=== PATIENT | male | born 1960 | race Caucasian/White ===

== ENCOUNTER 2017-11-11 06:36 | Day surgery (SDC) | payer BC ==
[~2017-11-11 06:36] MED LIST: Lactated Ringers 1,000 ML IV SCH; Lidocaine 1%/Sod Bicarbonate in NS 8.4% 1 ML Syringe IDERM PRN; Sodium Chloride 0.9% 10 ML Syringe FLUSH PRN
[2017-11-11] MEDS ORDERED: Propofol 200 MG/20 ML SDV ONE ×2 (06:45→06:47)
[2017-11-11] MEDS ORDERED: Lidocaine 1% 2 ML ONE ×2 (06:45)
--- NOTE | 2017-11-11 07:08 | PCM.PREANE ---
Preanesthetic Assessment - Anesthesia/Transfusion/Family Hx Anesthesia History: Prior Anesthesia Without Reaction Family History of Anesthesia Reaction: No Transfusion History: No Prior Transfusion(s) Intubation History: Unknown - Review of Systems General: No Symptoms Pulmonary: No Symptoms Cardiovascular: No Symptoms Gastrointestinal: No Symptoms Neurological: No Symptoms Other: Reports: None - Physical Assessment NPO Status Date: 11/10/17 NPO Status Time: 17:00 Pulse: 66 O2 Sat by Pulse Oximetry: 97 Respiratory Rate: 16 Blood Pressure: 143/99 Temperature: 97.5 C ASA Class: 2 Mental Status: Alert & Oriented x3 Dentition: Reports: Normal Dentition Thyro-Mental Finger Breadths: 3 Mouth Opening Finger Breadths: 3 ROM/Head Extension: Full Lungs: Clear to Auscultation, Normal Respiratory Effort Cardiovascular: Regular Rate, Regular Rhythm - Allergies Allergies/Adverse Reactions: Allergies Allergy/AdvReac Type Severity Reaction Status Date / Time amoxicillin [From Augmentin] AdvReac thrush Verified 11/09/17 08:04 clavulanic acid AdvReac thrush Verified 11/09/17 08:04 [From Augmentin] - Acknowledgements Anesthesia Type Planned: MAC Pt an Appropriate Candidate for the Planned Anesthesia: Yes Alternatives and Risks of Anesthesia Discussed w Pt/Guardian: Yes Pt/Guardian Understands and Agrees with Anesthesia Plan: Yes PreAnesthesia Questionnaire HEENT History: Reports: Otitis Media Cardiovascular History: Reports: CAD, Cardiomyopathy, High Cholesterol, Hypertension (EKG 09-23-17 SR 64, ASHD), Other (See Below) Other Cardiovascular History: varicose veins, stents, chest pain Respiratory History: Reports: Asthma (Asthma as a child, no problems as an adult ), SOB (with exertion, states better since stents placed) Gastrointestinal History: Reports: Diverticulosis, GERD, Other (See Below) Other Gastrointestinal History: excessive flatus, dyspepsia, colostomy with take down Genitourinary History: Reports: None 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 Musculoskeletal History: Reports: Back Pain, Chronic, Other (See Below) Other Musculoskeletal History: lumbar strain, right foot pain, ganglion cyst Neurological History: Reports: None Psychiatric History: Reports: None Endocrine/Metabolic History: Reports: Diabetes, Type II (pt states does not check BS on a normal basis), Obesity/BMI 30+ Hematologic History: Reports: None Immunologic History: Reports: None Oncologic (Cancer) History: Reports: None Dermatologic History: Reports: Seborrheic Dermatitis, Other (See Below) Other Dermatologic History: warts - Past Surgical History Head Surgeries/Procedures: Reports: None HEENT Surgical History: Reports: None Cardiovascular Surgical History: Reports: Coronary Artery Stent Respiratory Surgical History: Reports: None GI Surgical History: Reports: Colon (colon resection), Colonoscopy, Colostomy Female Surgical History: Reports: None Male Surgical History: Reports: None Endocrine Surgical History: Reports: None Neurological Surgical History: Reports: None Musculoskeletal Surgical History: Reports: None Oncologic Surgical History: Reports: None Dermatological Surgical History: Reports: None - SUBSTANCE USE Smoking Status *Q: Former Smoker Recreational Drug Use History: No - HOME MEDS Home Medications: Home Meds Aspirin [Adult Aspirin] 81 mg PO DAILY 11/08/17 [History] Garlic 1,000 mg PO DAILY 11/08/17 [History] Losartan [Cozaar] 25 mg PO DAILY 11/08/17 [History] Multivitamin [Daily Marya] 1 tab PO DAILY 11/08/17 [History] [place]-3/DHA/Epa/Fish Oil [Fish Oil 1,000 mg Softgel] 1 gm PO DAILY 11/08/17 [ History] Ranitidine [Zantac] 150 mg PO DAILY 11/08/17 [History] Ubidecarenone [COQ-10] 30 mg PO DAILY 11/08/17 [History] atorvaSTATin [Lipitor] 10 mg PO DAILY 11/08/17 [History] buPROPion [Wellbutrin SR] 150 mg PO BID 11/08/17 [History] metFORMIN [Glucophage XR] 500 mg PO BID 11/08/17 [History] - CURRENT (IN HOUSE) MEDS Current Meds: Current Medications Lactated Ringer's (Ringers, Lactated) 1,000 mls @ 125 mls/hr IV ASDIRECTED TIM Stop: 11/11/17 23:00 Lidocaine/Sodium Bicarbonate (Buffered Lidocaine 1% In Ns 8.4%) 0.25 ml IDERM ONETIME PRN PRN Reason: Prior to IV Start Stop: 11/11/17 18:00 Sodium Chloride (Saline Flush) 10 ml FLUSH ASDIRECTED PRN PRN Reason: Keep Vein Open Stop: 11/11/17 18:00 Discontinued Medications Lidocaine HCl (Xylocaine-Mpf 1%) Confirm Administered Dose 2 mls @ as directed .ROUTE .STK-MED ONE Stop: 11/11/17 06:46 Lidocaine HCl (Xylocaine-Mpf 1%) Confirm Administered Dose 2 mls @ as directed .ROUTE .STK-MED ONE Stop: 11/11/17 06:46 Propofol (Diprivan 20 Ml) Confirm Administered Dose 200 mg .ROUTE .STK-MED ONE Stop: 11/11/17 06:46 Propofol (Diprivan 20 Ml) Confirm Administered Dose 200 mg .ROUTE .STK-MED ONE Stop: 11/11/17 06:48
--- NOTE | 2017-11-11 07:29 | PCM.HP ---
H&P History of Present Illness - General Date of Service: 11/11/17 Admit Problem/Dx: surveillance colonoscopy, reflux, heartburn, LUQ discomfort - History of Present Illness Initial Comments - Free Text/Narative: The patient is a 57-year-old malereferred by Dr. Clifton for surveillance colonoscopy, hx of colon polyps The patient presents today for surveillance colonoscopy and diagnostic EGD. He was last evaluated in the clinic on 09/23. He denies changes to medical history since that date. He did complete prep. Stools were clear. He did see cardiology and cardiac status was felt to be stable. The patient hasconstipation occasionally and uses a stools softener with relief. Using less stool softeners since last visit. NO: Diarrhea. NO: hematochezia/ melena/blood on tissue paper. Hx of hemorrhoids. Has 1-2BMs daily. Bowel movements are described as regular and easy to pass, occasionally hard to pass. No unintentional weight loss. No change in stool caliber. No abdominal pain, today. Occasionally will have some RLQ pain and has increased flatus. He does think this improves with bowel movements. Uses Gas X -less than at last visit. Anything can induce flatus, avoid cauliflower and broccoli. Denies history of ulcerative colitis or Crohn's disease. Reports family history of inflammatory bowel disease in nephew. NO:GI cancers.Last colonoscopy was 2000, tubular adenoma with low grade dysplasia was found, done in [place]. Has reflux, heartburn, not well controlled with Zantac. Reports he was started on Zantac by PCP and cardiology as was told his "medications can tear up his stomach." Rolaids do not help. He reports reflux/heartburnnot daily, but a frequent occurrence. He reports sometimes will have LUQ/epigastric pain/chest painwith increased gas. Pain occurs several times per week. Pain does not radiate. He does not have diaphoresis with this. He reports this has been ongoing for 6-8 months. Again he did see his psychological operations on 10/04, I did update his psychological operations on symptoms and patient was cleared for procedure. Pain is not exertional, happens more at rest.He reports when he had SOBprior to stenting -He does not have this currently. He has not identified a trigger. NO: nausea, vomiting, or dysphagia. Last EGD was never. No right upper abdominal pain. NO pain/diarrhea with fatty meals. - Related Data Allergies/Adverse Reactions: Allergies Allergy/AdvReac Type Severity Reaction Status Date / Time amoxicillin [From Augmentin] AdvReac thrush Verified 11/09/17 08:04 clavulanic acid AdvReac thrush Verified 11/09/17 08:04 [From Augmentin] Home Medications: Home Meds Aspirin [Adult Aspirin] 81 mg PO DAILY 11/08/17 [History] Garlic 1,000 mg PO DAILY 11/08/17 [History] Losartan [Cozaar] 25 mg PO DAILY 11/08/17 [History] Multivitamin [Daily Marya] 1 tab PO DAILY 11/08/17 [History] [place]-3/DHA/Epa/Fish Oil [Fish Oil 1,000 mg Softgel] 1 gm PO DAILY 11/08/17 [ History] Ranitidine [Zantac] 150 mg PO DAILY 11/08/17 [History] Ubidecarenone [COQ-10] 30 mg PO DAILY 11/08/17 [History] atorvaSTATin [Lipitor] 10 mg PO DAILY 11/08/17 [History] buPROPion [Wellbutrin SR] 150 mg PO BID 11/08/17 [History] metFORMIN [Glucophage XR] 500 mg PO BID 11/08/17 [History] Past Medical History HEENT History: Reports: Otitis Media Cardiovascular History: Reports: CAD, Cardiomyopathy, High Cholesterol, Hypertension (EKG 09-23-17 SR 64, ASHD), Other (See Below) Other Cardiovascular History: varicose veins, stents, chest pain Respiratory History: Reports: Asthma (Asthma as a child, no problems as an adult ), SOB (with exertion, states better since stents placed) Gastrointestinal History: Reports: Diverticulosis, GERD, Other (See Below) Other Gastrointestinal History: excessive flatus, dyspepsia, colostomy with take down Genitourinary History: Reports: None 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 Musculoskeletal History: Reports: Back Pain, Chronic, Other (See Below) Other Musculoskeletal History: lumbar strain, right foot pain, ganglion cyst Neurological History: Reports: None Psychiatric History: Reports: None Endocrine/Metabolic History: Reports: Diabetes, Type II (pt states does not check BS on a normal basis), Obesity/BMI 30+ Hematologic History: Reports: None Immunologic History: Reports: None Oncologic (Cancer) History: Reports: None Dermatologic History: Reports: Seborrheic Dermatitis, Other (See Below) Other Dermatologic History: warts - Past Surgical History Head Surgeries/Procedures: Reports: None HEENT Surgical History: Reports: None Cardiovascular Surgical History: Reports: Coronary Artery Stent Respiratory Surgical History: Reports: None GI Surgical History: Reports: Colon (colon resection), Colonoscopy, Colostomy Female Surgical History: Reports: None Male Surgical History: Reports: None Endocrine Surgical History: Reports: None Neurological Surgical History: Reports: None Musculoskeletal Surgical History: Reports: None Oncologic Surgical History: Reports: None Dermatological Surgical History: Reports: None Social & Family History - Tobacco Use Smoking Status *Q: Former Smoker Used Tobacco, but Quit: Yes Month/Year Tobacco Last Used: 03/2017 - Caffeine Use Caffeine Use: Reports: Coffee - Recreational Drug Use Recreational Drug Use: No Drug Use in Last 12 Months: No H&P Review of Systems - Review of Systems: Review Of Systems: See Below Free Text/Narrative: Denies any exertional chest pain or shortness of breath. He does not get regular exercise. 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 No history of any easy bleeding or bruising. No personal or familial history of clotting or bleeding disorders. No history of anesthetic complications. No history of familial anesthetic complications. Denies presence of chest pain. He has history of stenting 2013 and 2016 had shortness of breath prior to stenting. NO: palpitations. He reports at times is more aware of heart beat. Denies symptoms with this. NO: lower extremity edema, dyspnea at rest, orthopnea, claudication. He has had some left leg pain for several months, primarily behind the knee. He has some leg cramping at rest with this. Stretching does help. Pain seems to come and go. His fiance is concerned he has a blood clot. He reports he was told pain was due to varicose veins by PCP. I did offer venous duplex/reflux study at last visit and he declined. He does wear knee high compression stockings. He did use a knee brace and this did help with symptoms. NO: wheezing, obstructive sleep apnea. Reports Snoring. NO: witnessed apnea. NO: chronic cough, upper respiratory symptoms in the last two weeks. No history of blood thinner use, uses aspirin, stopped Plavix last year. No history of anemia. NO: joint replacement and heart valve replacement. No history of seizure or stroke. No fever, chills, or nightsweats. Follows with Cardiology. NO: pulmonology evaluation. EK EKG Severity - NORMAL ECG - EKG Impression Sinus rhythm Echo: 2013 Conclusion: 1. Left ventricular ejection fraction is 55 to 60%. 2. Mildly dilated left atrium. 3. Mildly dilated right atrium. 4. There is no evidence of pericardial effusion Cardiac cath 2016: IMPRESSION: Atherosclerotic heart disease manifested by 2-vessel disease with progressive, life-style limiting angina, Eddy class III due to progression of disease, proximal left anterior descending coronary artery, status post culprit lesion percutaneous coronary intervention as noted above; widely patent stent right coronary artery. All other systems reviewed and were negative except as per history of present illness. Exam - Exam Exam: See Below - Vital Signs Vital Signs: Last Vital Signs Temp 207.5 F H 11/11/17 07:15 Pulse 66 11/11/17 07:15 Resp 16 11/11/17 07:15 BP 143/99 H 11/11/17 07:15 Pulse Ox 97 11/11/17 07:15 Weight: 100.244 kg - Exam General: Alert, Oriented HEENT: Conjunctiva Clear Lungs: Clear to Auscultation, Normal Respiratory Effort Cardiovascular: Regular Rate, Regular Rhythm, Normal S1, Normal S2 GI/Abdominal Exam: Normal Bowel Sounds, Soft, Non-Tender Back Exam: Normal Inspection Extremities: Normal Inspection, No Pedal Edema, Normal Capillary Refill, Other ( varicosity slightly tender to left popliteal fossa, no warmth, no firmness, no erythema, no edema) Peripheral Pulses: 2+: Radial (L), Radial (R) Skin: Warm, Dry, Intact Neuro Extensive - Mental Status: Alert, Oriented x3, Normal Mood/Affect, Normal Cognition, Memory Intact Psychiatric: Alert, Normal Affect, Normal Mood - Problem List (1) Encounter for colonoscopy due to history of adenomatous colonic polyps SNOMED Code(s): 854274988, 505343870 ICD Code: Z12.11 - ENCOUNTER FOR SCREENING FOR MALIGNANT NEOPLASM OF COLON; Z86.010 - PERSONAL HISTORY OF COLONIC POLYPS Status: Acute Current Visit: Yes (2) Reflux esophagitis SNOMED Code(s): 061038871 ICD Code: K21.0 - GASTRO-ESOPHAGEAL REFLUX DISEASE WITH ESOPHAGITIS Status : Acute Current Visit: Yes (3) Heartburn SNOMED Code(s): 98299652 ICD Code: R12 - HEARTBURN Status: Acute Current Visit: Yes (4) LUQ pain SNOMED Code(s): 864844881 ICD Code: R10.12 - LEFT UPPER QUADRANT PAIN Status: Acute Current Visit: Yes Problem List Initiated/Reviewed/Updated: Yes Orders Last 24hrs: Active Orders 24 hr Category Date Time Status Peripheral IV Care [RC] . DIRECTED Care 11/11/17 00:01 Active Verify Patient Consent Obtain [RC] ASDIRECTED Care 11/11/17 00:01 Active Lactated Ringers [Ringers, Lactated] 1,000 ml Med 11/11/17 00:01 Active IV ASDIRECTED Lidocaine 1%/Sod Bicarbonate [Buffered Lidocaine 1% in Med 11/11/17 00:01 Active NS 8.4%] 0.25 ml IDERM ONETIME PRN Sodium Chloride 0.9% [Saline Flush] Med 11/11/17 00:01 Active 10 ml FLUSH ASDIRECTED PRN Medication Administration Instruction [OM.PC] Routine Oth 11/11/17 00:01 Ordered Peripheral IV Insertion Adult [OM.PC] Routine Oth 11/11/17 00:01 Ordered Medication Orders Lactated Ringer's (Ringers, Lactated) 1,000 mls @ 125 mls/hr IV ASDIRECTED TIM Stop: 11/11/17 23:00 Last Admin: 11/11/17 07:10 Dose: 125 mls/hr Lidocaine/Sodium Bicarbonate (Buffered Lidocaine 1% In Ns 8.4%) 0.25 ml IDERM ONETIME PRN PRN Reason: Prior to IV Start Stop: 11/11/17 18:00 Last Admin: 11/11/17 07:10 Dose: 0.25 ml Sodium Chloride (Saline Flush) 10 ml FLUSH ASDIRECTED PRN PRN Reason: Keep Vein Open Stop: 11/11/17 18:00 Assessment/Plan Comment:: 57yr male with reflux, heartburn, LUQ discomfort, increased flatus, history of tubular adenoma with low grade dysplasia, need for diagnostic EGD and surveillance colonoscopy Patient can perform 4 METS of physical activity without chest pain or shortness of breath. Symptomatic left leg varicosities, popliteal fossa pain PLAN: We discussed performing adiagnostic EGD and diagnostic colonoscopy. We discussed the procedure and post operative expectations. This procedure will be done at [facility] due to cardiac history Patient has symptomatic left leg varicosities with a tender varicosity to the popliteal fossa. His fianceis concerned about a blood clot in this area. Again discussed Typically blood clots do not have a colicky nature to pain for a prolonged period. He has no erythema, warmth or edema to the area. The pain improves with stretching. Discussed without completing a venous reflux study which would also include a venous duplex, I cannot be 100% certain there is not a clot within the varicosity. He is concerned about cost but is now willing to proceed with imaging. Discussed risks of untreated blood clot, continues to refuse further testing. Wediscussed should he develop redness/warmth/swelling/ chest pain/SOB he is immediately to seek care. He does use knee high compression stockings. Previously-Discussed with the location of the varicosities thigh high compression stockings would be advised. He does report reflux/heartburn/LUQ pain/gas pain. Patient would like to proceed with EGD as planned above to further evaluate I personally reviewed the patient's previous medical records and laboratory studies. Patient verbalized understanding and agreed with care plan. SAUL Armendariz General Surgery Department [facility]
--- NOTE | 2017-11-11 08:32 | PCM.OPNOTE ---
- General Post-Op/Procedure Note Date of Surgery/Procedure: 11/11/17 Operative Procedure(s): egd with bx and colonosocopy to cecum Pre Op Diagnosis: survailance colonoscopy GERD Post-Op Diagnosis: Same Anesthesia Technique: MAC Primary Surgeon: Matthew Olivo EBL in mLs: 0 Complications: None Condition: Good
--- NOTE | 2017-11-11 08:35 | PCM48HPAN ---
Post Anesthesia Note - EVALUATION WITHIN 48HRS OF ANESTHETIC Vital Signs in Normal Range: Yes Patient Participated in Evaluation: Yes Respiratory Function Stable: Yes Airway Patent: Yes Cardiovascular Function Stable: Yes Hydration Status Stable: Yes Pain Control Satisfactory: Yes Nausea and Vomiting Control Satisfactory: Yes Mental Status Recovered: Yes Pulse Rate: 68 SaO2: 96 Resp Rate: 16 Temperature: 98.0 C Blood Pressure: 126/94
--- NOTE | 2017-11-12 07:28 | OR ---
DATE OF OPERATION: 11/11/2017 SURGEON: Matthew Olivo MD PREOPERATIVE DIAGNOSIS: History of colonic polyps. POSTOPERATIVE DIAGNOSIS: History of colonic polyps. OPERATION PERFORMED: Surveillance colonoscopy and colonoscopy to cecum. ANESTHESIA: Done under IV sedation. FINDINGS: Normal study. RECOMMENDATION: Repeat colonoscopy in 10 years. DESCRIPTION OF PROCEDURE: The patient having been taken to the endoscopy room, was connected to monitoring equipment for upper GI endoscopy and given IV sedation, this IV sedation was continued for colonoscopy. The patient was placed in left lateral position. Perianal area was inspected and was normal. Rectal exam showed good sphincter tone. Video Olympus colonoscope was then introduced into the rectum and threaded up without problem to the cecum, where the appendicular orifice was noted. Prep was excellent. [place] cleansing score, grade A. The scope was slowly withdrawn showing the cecum, ascending colon, transverse colon, descending colon, sigmoid colon, and rectum. The patient tolerated the procedure and was sent to the recovery room in a stable condition. Findings were normal study. The patient will be followed up in the clinic. ESTIMATED BLOOD LOSS: MMODAL /[id number]
--- NOTE | 2017-11-12 07:49 | OR ---
DATE OF OPERATION: 11/11/2017 SURGEON: Matthew Olivo MD PREOPERATIVE DIAGNOSIS: Gastroesophageal reflux disease. POSTOPERATIVE DIAGNOSIS: Gastroesophageal reflux disease. OPERATION PERFORMED: Esophagogastroduodenoscopy with biopsy, done under IV sedation. FINDINGS: Some erythema in the duodenal bulb which was biopsied and also in the antrum which was biopsied. There was a hiatal hernia with some incompetence of the hiatus with an abnormal Z-line showing one tongue of gastric mucosa extending for about 2 cm. This area was also biopsied. Body, fundus, and cardia were unremarkable. No acute disease of the stomach. The second portion of the duodenum and the balance of the esophagus did not show any acute disease. DESCRIPTION OF PROCEDURE: The patient was taken to the endoscopy room, placed in a supine position, connected to monitoring equipment, given IV sedation. A bite block was inserted. He was placed in left lateral position and a video Olympus gastroscope was placed in the posterior oropharynx under direct vision, threaded past the cricopharyngeus, down the esophagus, into the stomach. Stomach was insufflated and the scope passed through the pylorus to the second portion of the duodenum, where it was slowly withdrawn showing normal second portion of the duodenum, but some erythema in the duodenal wall, which was biopsied. There was also some erythema in the antrum. This was also biopsied. J-maneuver was performed showing the cardia and body of the stomach and fundus without any pathology. There was some incompetence of the hiatus with sliding hiatal hernia. GE junction was located at 38 cm and showed one tongue of gastric mucosa extending about 1 cm above the Z-line and this area was biopsied. Rest of the esophagus viewed, scope withdrawn, and was normal. The patient tolerated the procedure. Specimen sent to pathology in a labeled container and IV sedation continued for colonoscopy. ANESTHESIA: ESTIMATED BLOOD LOSS: MMODAL /[id number]
== END 2017-11-11 09:20 | disposition home or self-care (01) ==
LOC: JD.SDS 06:36
PROVIDERS: ATTEND Surgery
DX: Z12.11 Encounter for screening for malignant neoplasm of colon (principal); K21.9 Gastro-esophageal reflux disease without esophagitis; K44.9 Diaphragmatic hernia without obstruction or gangrene; K29.50 Unspecified chronic gastritis without bleeding; K29.80 Duodenitis without bleeding; I11.9 Hypertensive heart disease without heart failure; I43 Cardiomyopathy in diseases classified elsewhere; I25.10 Atherosclerotic heart disease of native coronary artery without angina pectoris; E11.9 Type 2 diabetes mellitus without complications; E78.00 Pure hypercholesterolemia, unspecified; J45.909 Unspecified asthma, uncomplicated; Z88.0 Allergy status to penicillin; Z79.82 Long term (current) use of aspirin; Z79.84 Long term (current) use of oral hypoglycemic drugs; Z79.899 Other long term (current) drug therapy; Z87.891 Personal history of nicotine dependence; Z86.010 Personal history of colon polyps
CPT/HCPCS: 43239; 45378; J2704; J7120; 00813; J2001